=== PATIENT | male | born 1995 | race Caucasian/White ===

== ENCOUNTER 2022-10-03 19:51 | Emergency (ER) | payer OTHER ==
[2022-10-03 20:06] VITALS: BP 144/89
[2022-10-03] MEDS ORDERED: lidocaine 1% 20 ML MDV SUBQ ONE (21:58)
--- NOTE | 2022-10-03 22:48 | ED Physician Documentation ---
PD HPI UPPER EXT INJURY - Stated complaint Stated Complaint: L FINGER LAC - Chief complaint Chief Complaint: Laceration - History obtained from History obtained from: Patient - Additonal information Additional information: Patient is a 26-year-old with no significant past medical history presenting for evaluation of laceration to his left fourth digit. Patient was opening a can of green beans for green march casserole when he cut his finger removing the lid. His tetanus is up-to-date. He does not take a blood thinner. Bleeding is controlled. Review of Systems Constitutional: denies: Fever Cardiac: denies: Chest pain / pressure Respiratory: denies: Dyspnea GI: denies: Abdominal Pain Skin: reports: Laceration (s) Musculoskeletal: denies: Extremity pain PD PAST MEDICAL HISTORY - Past Medical History Past Medical History: No Cardiovascular: None Respiratory: None Neuro: None Endocrine/Autoimmune: None GI: None : None HEENT: None Psych: None Musculoskeletal: None Derm: None - Past Surgical History Past Surgical History: No - Present Medications Home Medications: Ambulatory Orders Medication Instructions Recorded Confirmed Atorvastatin [Lipitor] 10 mg PO DAILY 10/03/22 10/03/22 - Allergies Allergies/Adverse Reactions: Allergies Allergy/AdvReac Type Severity Reaction Status Date / Time No Known Drug Allergies Allergy Verified 10/03/22 20:02 - Social History Does the pt smoke?: No Smoking Status: Never smoker Does the pt drink ETOH?: No Does the pt have substance abuse?: No - Immunizations Immunizations are current?: Yes - POLST Patient has POLST: No PD ED PE NORMAL - General General: Alert and oriented X 3, No acute distress, Well developed/nourished - HEENT HEENT: Atraumatic - Respiratory Respiratory: No respiratory distress - Derm Derm: Warm and dry - Extremities Extremities: Other (Laceration to volar aspect of left fourth digit; Full range of motion at all joints, brisk cap refill, sensation intact) PD ED PE EXPANDED - Extremities TRISTEN UE/Hands Visual: 1 - laceration Results - Vitals Vitals: Vital Signs - 24 hr 10/03/22 10/03/22 20:00 21:41 Temperature 36.4 C L Heart Rate 77 Respiratory 16 17 Rate Blood Pressure 144/89 H O2 Saturation 99 Oxygen O2 Source Room air Procedures - Laceration (location) Left fourth Finger Length in cm: 2 Wound type: Linear, Clean Neurovascular status: Sensory intact, Motor intact, Vascular intact Tendon involvement: Tendon intact Anesthesia: Lidocaine 1% Wound preparation: Hibiclens, Irrigated copiously NS Skin layer closure: Interrupted, Size #-0 - enter number (4), Sutures - enter # (5) Other: Patient tolerated well, No complications, Neurovascular intact, Dressing applied, Tetanus UTD PD MEDICAL DECISION MAKING - ED course ED course: Patient with laceration to left fourth finger. No tendon involvement. Patient has full range of motion of digit and normal motor and sensation. No signs of vascular injury. Wound was cleaned and sutured. His tetanus is up-to-date. Patient is aware of wound care instructions and need for return for suture removal. He is advised on concerning symptoms to return for. Departure - Departure Disposition: 01 Home, Self Care Clinical Impression: Laceration of left ring finger w/o foreign body w/o damage to nail Qualifiers: Encounter type: initial encounter Qualified Code(s): S61.215A - Laceration without foreign body of left ring finger without damage to nail, initial encounter Condition: Stable Instructions: ED Laceration Ext Sutr Stap Tape Comments: The laceration to your left fourth digit was closed with 5 stitches. These should be left in for 1 week. We have placed a dressing on the wound which I would keep on it for the next 24 hours. After that please make sure to keep the wound clean and dry. You are able to shower and get it wet but I would not scrub at the wound.It may be easier to keep a small dressing to cover the wound during the day times As a reminder to be cautious with the digit until the laceration is healed. You can return to the emergency department or follow-up with your primary care provider to have the stitches removed in 1 week on October 10.If you notice any worsening symptoms such as swelling, abnormal drainage or have any concerns you are always welcome to return to the ER for reevaluation. Forms: Activity restrictions Discharge Date/Time: 10/03/22 22:55
== END 2022-10-03 22:55 | disposition home or self-care (01) ==
LOC: ED 19:51
DX: S61.215A Laceration without foreign body of left ring finger without damage to nail, initial encounter (principal); W26.8XXA Contact with other sharp object(s), not elsewhere classified, initial encounter; Y93.G1 Activity, food preparation and clean up
CPT/HCPCS: 12001; 99282